=== PATIENT | male | born 1985 | race Two or more races ===

== ENCOUNTER 2025-05-05 22:11 | Emergency (ER) | payer MEDICAID, OTHER ==
[~2025-05-05] VITALS: Ht 167.6 cm; Wt 76.2 kg
[2025-05-05] MEDS ORDERED: IBUPROFEN 400 MG TABLET ONE (23:37)
[2025-05-05] MEDS: IBUPROFEN 400 MG TABLET PO ONE (23:39)
[2025-05-05 23:45] VITALS: BP 137/70; TEMP 97.7; O2SAT 98
== END 2025-05-05 23:45 | disposition home or self-care (01) ==
LOC: ER 22:23
DX: S86.811A Strain of other muscle(s) and tendon(s) at lower leg level, right leg, initial encounter (principal); X58.XXXA Exposure to other specified factors, initial encounter; Y93.61 Activity, american tackle football; Y92.89 Other specified places as the place of occurrence of the external cause; Y99.8 Other external cause status